=== PATIENT | male | born 1975 | race Caucasian/White ===

== ENCOUNTER → 2019-06-28 | Outpatient (REF) | payer MEDICARE, MEDICAID ==
[2019-06-28 18:06] LABS: BASO # 0.1 10^3/uL (0.0-0.2); BASO % 0.9 % (0.0-1.0); EOS # 0.1 10^3/uL (0.0-0.5); EOS % 1.1 % (0.0-3.0); HEMATOCRIT 50.5 % (42.0-52.0); HEMOGLOBIN 16.8 g/dl (13.5-17.5); LYMPH # 0.7 10^3/uL (1.5-5.0); LYMPH % 12.6 % (24.0-44.0); MEAN CORPUSCULAR HEMOGLOBIN 28.8 pg (27.0-33.0); MEAN CORPUSCULAR HGB CONC 33.3 g/dl (32.0-36.5); MEAN CORPUSCULAR VOLUME 86.5 fl (80.0-96.0); MONO # 0.4 10^3/uL (0.0-0.8); MONO % 7.8 % (0.0-5.0); NEUTROPHILS # 4.4 10^3/uL (1.5-8.5); NEUTROPHILS % 77.4 % (36.0-66.0); PLATELET COUNT, AUTOMATED 163 10^3/uL (150-450); RED BLOOD COUNT 5.84 10^6/uL (4.30-6.10); WHITE BLOOD COUNT 5.6 10^3/uL (4.0-10.0)
[2019-06-28 18:17] LABS: ALBUMIN 4.4 GM/DL (3.2-5.2); ALT/SGPT 57 U/L (12-78); BILIRUBIN,TOTAL 0.5 MG/DL (0.2-1.0); BLOOD UREA NITROGEN 19 MG/DL (7-18); CALCIUM LEVEL 9.5 MG/DL (8.5-10.1); CARBON DIOXIDE LEVEL 30 MEQ/L (21-32); CHLORIDE LEVEL 105 MEQ/L (98-107); CHOLESTEROL LEVEL 221 MG/DL (<200); CHOLESTEROL RISK RATIO 7.366 (<5); CREATININE FOR GFR 1.26 MG/DL (0.70-1.30); FREE T4 1.15 NG/DL (0.76-1.46); GLOMERULAR FILTRATION RATE > 60.0 (>60); GLUCOSE, FASTING 94 MG/DL (70-100); HDL CHOLESTEROL 30 MG/DL (>40); LDL CHOLESTEROL 154 MG/DL (<100); NON-HDL-C 191 MG/DL; POTASSIUM SERUM 4.4 MEQ/L (3.5-5.1); SODIUM LEVEL 140 MEQ/L (136-145); TOTAL PROTEIN 7.1 GM/DL (6.4-8.2); TRIGLYCERIDES LEVEL 187 MG/DL (<150)
[2019-06-28 18:24] LABS: HEMOGLOBIN A1c 4.7 %
== END ==
LOC: M SFHCCLAY 10:28
PROVIDERS: ATTEND Family Medicine
DX: R60.0 Localized edema (principal); Z83.3 Family history of diabetes mellitus

== ENCOUNTER → 2019-06-28 | Outpatient (CLI) | payer MEDICARE, MEDICAID ==
--- NOTE | 2019-06-28 11:19 | REP ---
Clinical: Chronic cough . Comparison: None . Technique: PA and lateral. Findings: The mediastinum and cardiac silhouette are normal. The lung stubbs are clear and without acute consolidation, effusion, or pneumothorax. The skeletal structures are intact and normal. Impression: 1. No acute cardiopulmonary process. Electronically Signed by Orville Monet MD 06/28/2019 11:10 A
== END ==
LOC: M CLY 10:42
PROVIDERS: ATTEND Family Medicine
DX: R05 Cough (principal); R60.0 Localized edema

== ENCOUNTER → 2019-06-29 | Outpatient (CLI) | payer MEDICARE, MEDICAID ==
--- NOTE | 2019-06-30 08:36 | REP ---
Clinical: Bilateral lower extremity edema. Technique: Bronson scale and color Doppler evaluation of the bilateral lower extremities using linear high frequency transducer. Findings: Ultrasound examination of the right and left lower extremity deep venous structures from the common femoral vein to the popliteal vein demonstrates normal compressibility flow and wave patterns in response to respiration and augmentation. There is no evidence for deep venous thrombosis. Impression: No evidence for deep venous thrombosis bilateral lower extremities . Electronically Signed by Orville Monet MD 06/29/2019 03:50 P
== END ==
LOC: M RAD 14:34
PROVIDERS: ATTEND Family Medicine
DX: R60.0 Localized edema (principal)

== ENCOUNTER → 2019-12-28 | Outpatient (CLI) | payer MEDICARE, MEDICAID ==
[~2019-12-28] MED LIST: METHACHOLINE KIT (J7674) INH ONE
--- NOTE | 2019-12-28 09:39 | PFTRPT ---
Site: [facility], [address] [place], [address] ID: [id number] Name: GUNJAN MORRISON Visit Date: 12/28/2019 Second ID: [id number] Referring Doctor: Scott Reddy Reviewing Doctor: Sukhjinder Alfonso MD Sports Medicine Coordinator: Sandra Bucio Age: 44 : 1975 Sex: Male Race: Height: 62.00 Inches Weight: 238.00 Lbs BSA: 2.06 Order IDs: [id number] Requested Test(s): <RESP-PFT.BROCHOPROV> Diagnosis: R05 Post Test Comments: Patient is wheelchair bound and has decreased cognitive ability. The results of this test are questionable due to inconsistent efforts made by the patient due to his decreased cognitive ability. Pt was given four puffs of albuterol for postbronchodilator. Review Status: Not Reviewed Pre-Bronch Post-Bronch Pred Actual %Pred Actual %Chng SPIROMETRY FVC (L) 3.96 2.62 66 2.80 6 FEV1 (L) 3.17 2.62 82 2.61 FEV1/FVC (%) 79 100 126 93 -6 FEF 25% (L/sec) 7.98 4.14 51 3.98 -3 FEF 50% (L/sec) 6.02 4.19 69 3.92 -6 FEF 75% (L/sec) 1.84 2.59 140 2.36 -8 FEF 25-75% (L/sec) 3.12 3.75 120 3.55 -5 FEF Max (L/sec) 8.40 4.45 52 4.07 -8 FIVC (L) 2.72 2.73 FIF 50% (L/sec) 5.16 2.74 53 1.90 -30 FIF Max (L/sec) 2.76 2.02 -26 Expiratory Time (sec) 1.30 1.50 15 Back Extrap Vol (L) 0.18 0.14 -23 Time To FEFmax (sec) 0.206 0.265 28
== END ==
LOC: M CARPUL 07:43
PROVIDERS: ATTEND Family Medicine
DX: R05 Cough (principal)
CPT/HCPCS: 94070; 95070; J7674

== ENCOUNTER → 2025-03-13 | Outpatient (REF) | payer MEDICARE, MEDICAID ==
[2025-03-13 14:46] LABS: ALBUMIN 4.4 G/DL (3.2-5.2); BILIRUBIN,TOTAL 0.5 MG/DL (0.3-1.2); CHOLESTEROL RISK RATIO 6.2 (<5); CREATININE FOR GFR 1.11 MG/DL (0.70-1.30); GLOMERULAR FILTRATION RATE 81.9 (>60); HDL CHOLESTEROL 32.7 MG/DL (>40); LDL CHOLESTEROL 137.9 MG/DL (<100); NON-HDL-C 170.3 MG/DL; POTASSIUM SERUM 4.7 MMOL/L (3.5-5.1); TOTAL PROTEIN 7.1 G/DL (5.7-8.2)
[2025-03-13 16:06] LABS: HEMOGLOBIN A1c 4.7 % (4.0-6.0)
== END ==
LOC: M SFHCCLAY 08:56
PROVIDERS: ATTEND Nurse Practitioner Family
DX: G80.9 Cerebral palsy, unspecified (principal); K21.9 Gastro-esophageal reflux disease without esophagitis; R03.0 Elevated blood-pressure reading, without diagnosis of hypertension; Z79.899 Other long term (current) drug therapy